=== PATIENT | female | born 1995 | race Two or more races ===

== ENCOUNTER 2020-06-30 19:40 | Emergency (ER) | payer SELFPAY ==
[~2020-06-30] VITALS: Ht 149.9 cm; Wt 78.0 kg
[~2020-06-30 19:40] MED LIST: ACET-704 PO; IBUP-1060 PO; PNV1TABL25 PO
[2020-06-30] MEDS ORDERED: IPRATRPIUM/ALBUTEROL 0.5/2.5MG 3 ML NEBU. NEB ONE (21:30)
[2020-06-30] MEDS ORDERED: predniSONE 20 MG TABLET PO ONE (21:45)
--- NOTE | 2020-06-30 21:58 | RAD ---
EXAM: CHEST 1 VIEW History: Cough, shortness of breath COMPARISON: None available. TECHNIQUE: Single portable radiograph of the chest FINDINGS: The cardiac silhouette is unremarkable. Mild prominent bilateral interstitial lung markings. The costophrenic sulci are clear and well demarcated. IMPRESSION: Mild prominent bilateral interstitial lung markings likely mild congestive changes or interstitial infiltrates. Electronically signed by: Ruben Maddox MD (06/30/2020 9:55 PM) [id number]
[2020-06-30] MEDS ORDERED: PRED20TA PO (22:45)
[2020-06-30] MEDS ORDERED: ALBU2.5V8 INH (22:45)
[2020-06-30] MEDS ORDERED: AZIT250T PO (22:45)
--- NOTE | 2020-06-30 22:45 | PHYS DOC ---
Past Medical History Past Medical History: No Pertinent History Past Surgical History: No Surgical History Smoking Status: Former Smoker Alcohol Use: None General Adult EDM: Chief Complaint: SHORTNESS OF BREATH HPI: HPI: Patient is a 25 year old female who presented to ER for evaluation cough with clear sputum and trouble breathing with nasal congestion for a month. Patient denies any fever, no chest pain, no abdominal pain, no nausea vomiting. Patient denies any sore throat, no headache. Patient is 24 weeks . This is her fourth . Patient denies any pelvic pain, no vaginal bleeding or discharge. Patient denies any concerns with her status. Patient denies being exposed to anybody who tested positive for COVID-19. Patient has been taking the [id number] medication for her cough but did not get any better. Patient denies any recent travel or operation. Patient denies smoking, denies any history of blood clot disorder. Review of Systems: Review of Systems: Constitutional: Denies fever or chills. [] Eyes: Denies change in visual acuity. [] HENT: Positive for nasal congestion, no sore throat. [] Respiratory: Positive for cough and shortness of breath. [] Cardiovascular: Denies chest pain or edema. [] GI: Denies abdominal pain, nausea, vomiting, bloody stools or diarrhea. [] : Denies dysuria. [] Musculoskeletal: Denies back pain or joint pain. [] Integument: Denies rash. [] Neurologic: Denies headache, focal weakness or sensory changes. [] Endocrine: Denies polyuria or polydipsia. [] Lymphatic: Denies swollen glands. [] Psychiatric: Denies depression or anxiety. [] Heart Score: Risk Factors: Risk Factors: DM, Current or recent (<one month) smoker, HTN, HLP, family history of CAD, obesity. Risk Scores: Score 0 - 3: 2.5% MACE over next 6 weeks - Discharge Home Score 4 - 6: 20.3% MACE over next 6 weeks - Admit for Clinical Observation Score 7 - 10: 72.7% MACE over next 6 weeks - Early Invasive Strategies Current Medications: Current Medications Medications (Trade) Dose Ordered Sig/Jessica Start Time Stop Time Status Last Admin Dose Admin Albuterol/ Ipratropium (Duoneb) 3 ml 1X ONCE 06/30/20 21:30 06/30/20 21:31 DC 06/30/20 21:30 3 ML Prednisone (Prednisone) 60 mg 1X ONCE 06/30/20 21:45 06/30/20 21:46 DC 06/30/20 22:15 60 MG Allergies: Allergies: Allergies Coded Allergies Type Severity Reaction Last Updated Verified No Known Drug Allergies 06/11/15 No Physical Exam: PE: Constitutional: Well developed, well nourished, no acute distress, non-toxic appearance. [] HENT: Normocephalic, atraumatic, bilateral external ears normal, oropharynx moist, no oral exudates, nose normal. [] Eyes: PERRLA, EOMI, conjunctiva normal, no discharge. [] Neck: Normal range of motion, no tenderness, supple, no stridor. [] Cardiovascular:Heart rate regular rhythm, no murmur [] Lungs & Thorax: Bilateral breath sounds with expiratory wheezing to auscultation [] Abdomen: Bowel sounds normal, soft, no tenderness, no masses, no pulsatile masses. [] Skin: Warm, dry, no erythema, no rash. [] Back: No tenderness, no CVA tenderness. [] Extremities: No tenderness, no cyanosis, no clubbing, ROM intact, no edema. [] Neurologic: Alert and oriented X 3, normal motor function, normal sensory function, no focal deficits noted. [] Psychologic: Affect normal, judgement normal, mood normal. [] Current Patient Data: Vital Signs: Current Medications Medications (Trade) Dose Ordered Sig/Jessica Route PRN Reason Start Time Stop Time Status Last Admin Dose Admin Albuterol/ Ipratropium (Duoneb) 3 ml 1X ONCE NEB 06/30/20 21:30 06/30/20 21:31 DC 06/30/20 21:30 Prednisone (Prednisone) 60 mg 1X ONCE PO 06/30/20 21:45 06/30/20 21:46 DC 06/30/20 22:15 Vital Signs Date Time Temp Pulse Resp B/P (MAP) Pulse Ox O2 Delivery O2 Flow Rate FiO2 06/30/20 21:33 95 Room Air 06/30/20 20:41 98.4 117 20 90/60 98.4 EKG: EKG: [] Radiology/Procedures: Radiology/Procedures: [][facility] [address] [place] [address] IMAGING REPORT Signed PATIENT: STANFORD ISBELL ACCOUNT: [id number] : 1995 LOCATION: ER AGE: 25 SEX: F EXAM STATUS: REG ER ORD. PHYSICIAN: SANDRA LONGORIA DO REASON: COUGH, SOA PROCEDURE: CHEST AP ONLY EXAM: CHEST 1 VIEW History: Cough, shortness of breath COMPARISON: None available. TECHNIQUE: Single portable radiograph of the chest FINDINGS: The cardiac silhouette is unremarkable. Mild prominent bilateral interstitial lung markings. The costophrenic sulci are clear and well demarcated. IMPRESSION: Mild prominent bilateral interstitial lung markings likely mild congestive changes or interstitial infiltrates. Electronically signed by: Ruben Maddox MD (06/30/2020 9:55 PM) [id number] DICTATED and SIGNED BY: RUBEN MADDOX MD DATE: 06/30/202154 Course & Med Decision Making: Course & Med Decision Making Pertinent Labs and Imaging studies reviewed. (See chart for details) Patient is a 25-year-old female who presented to ER for cough congestion trouble breathing over a month. Patient is 24 weeks . She denies any chest pain. She denies any fever. She had expiratory wheezing on examination. Patient was given breathing treatment and steroids in the ER, she feel much better. Patient will be discharged home, she will need to follow-up with NURSERY TEACHER for reevaluation. Oksana Disclaimer: Oksana Disclaimer: This electronic medical record was generated, in whole or in part, using a voice recognition dictation system. Departure Departure Impression: Primary Impression: Bronchospasm with bronchitis, acute Additional Impression: Person under investigation for COVID-19 Disposition: 01 DC HOME SELF CARE/HOMELESS Condition: IMPROVED Referrals: NO PCP (PCP) PLEASE FOLLOW UP WITH YOUR DOCTOR THIS WEEK Patient Instructions: Acute Bronchitis Additional Instructions: You have been tested for or diagnosed with COVID-19. It is an infection caused by a new type of coronavirus. COVID-19 will cause cold-like or mild flu symptoms in most. It can cause more severe symptoms like problems breathing in some. There is no treatment for COVID-19. The body will clear the infection over time. Self-care will help to ease discomfort. Steps to Take: Self-Care Rest as needed. Healthy habits may help you feel better. Steps include: Choose healthy foods including fruits and vegetables. Drink water throughout the day. Get plenty of sleep each night. If you smoke, try to quit. It may ease breathing. Avoid alcohol. Keep Others Healthy The virus can spread to others. Droplets are released every time you sneeze or cough. The droplets can get into the mouth, nose, or eyes of people near you and lead to infection. To lower the chances of spreading COVID-19 to others: Stay at home until your doctor has said it is safe to leave. If you tested positive this will mean staying isolated until both of the following are true: At least 7 days have passed since the start of illness. You are free of fever for at least 72 hours without the use of medicine. During this time: - Avoid public areas, events, or transportation. Do not return to work or school until your doctor has said it is safe to do so. - Call ahead if you need to go to a medical center. Let them know you may have COVID-19. It will help them guide you where to go. They may also ask you to wear a facemask when you come to the office. - If you call for emergency medical services, let them know you may have COVID- 19. While at home: - Try to avoid close contact with others. Stay about 6 feet away. - If possible, spend most of your time in a separate room from others. - Use a face mask if you will be in close contact with others such as sharing a room or vehicle. - Have someone wipe down common surfaces in the home. Use household consultant education every day on areas like doorknobs, counters, or sinks. - Cough or sneeze into a tissue. Throw the tissue away right after use. If a tissue is not available, cough or sneeze into your elbow. - Wash your hands often. Wash them after sneezing or coughing. Use soap and water and wash for at least 20 seconds. Alcohol based hand apparatus cleaner can be used if soap and water is not available. - Do not prepare food for others. Avoid sharing personal items like forks, spoons, or toothbrushes. - Avoid close contact with pets while you are sick. There is no evidence of the virus passing to pets. This is a safety step until more is known about this virus. Isolation can be frustrating. Social interaction can help. Keep in touch with friends and family through phone and tech options. You can still interact with others in your home, just keep a safe distance of about 6 feet. Follow-up: Your doctors office will check in with you to see if there are any changes in your health. You may be asked to keep track of symptoms to share with them. They will also let you know when you are clear to be in public again. Problems to Look Out For: Contact your doctor if your recovery is not going as you expect. Get emergency care if you have problems such as: - Trouble breathing - Nonstop chest pain or pressure - Changes in awareness, confusion, or problems waking - Lips or face have bluish color - Worsening of symptoms If you think you have an emergency, call for emergency medical services right away. As taken from [facility] Albuterol Sulfate (PROAIR HFA INHALER) 8.5 Gm Hfa.aer.ad 1 PUFF INH PRN Q6HRS PRN for SHORTNESS OF BREATH, #1 INHALER 0 Refills Prov: SANDRA LONGORIA DO 06/30/20 Prednisone (PREDNISONE) 20 Mg Tablet 1 TAB PO DAILY, #7 TAB Prov: SANDRA LONGORIA DO 06/30/20 Azithromycin (ZITHROMAX) 250 Mg Tablet 1 PKG PO UD, #6 TAB Prov: SANDRA LONGORIA DO 06/30/20 SANDRA LONGORIA DO Jun 30, 2020 22:45
[2020-06-30 23:03] VITALS: BP 124/91
--- NOTE | 2020-07-02 16:47 | NUR ---
IP: Informed pt of negative COVID test. Pt verbalized understanding.
== END 2020-06-30 23:04 | disposition home or self-care (01) ==
LOC: ER 19:40
DX: O26.892 Other specified pregnancy related conditions, second trimester (principal); J21.9 Acute bronchiolitis, unspecified; Z20.828 Contact with and (suspected) exposure to other viral communicable diseases; R05 Cough; R09.81 Nasal congestion; Z87.891 Personal history of nicotine dependence; Z3A.24 24 weeks gestation of pregnancy
CPT/HCPCS: 71045; 94640; 99284; J7512; U0003; C9803

== ENCOUNTER 2020-10-12 14:14 | Inpatient (IN) | payer SELFPAY ==
[~2020-10-12] VITALS: Ht 149.9 cm; Wt 80.7 kg
[~2020-10-12 14:14] MED LIST changes: +ALBU2.5V8 INH; +AZIT250T PO; +PRED20TA PO
--- NOTE | 2020-10-12 15:51 | PDOC1 ---
SENIOR RUBY DEVELOPER H&P Date of Admission: Date of Admission: Oct 12, 2020 at 14:14 History of Present Illness: EDC: 10/16/20 LMP: 01/10/20 25y @39.3 by L=23 who was sent from the office for concerns of elevated BP. The pt has had a total of 4 visits. She established care at around 20wks. She did not return until 35.5wks. Her BPs have been elevated when reordered (since 35.5wks). The pt denies MENDES, but states that she has been seeing spots off and on over the last couple of days. PMH: Denies PSH: Denies Meds: PNV All: NKDA OBHx: 3 x TSVD SH: no tob, no EtOH FH: noncontributory Allergies: Coded Allergies: No Known Drug Allergies (Unverified , 06/11/15) Physical Exam: PE: GENERAL: No apparent distress. Alert and oriented. HEENT: Head normocephalic, atraumatic. NECK: Supple LUNGS: Clear to auscultation. HEART: RRR, S1, S2 present, pulses intact ABDOMEN: Soft, positive bowel sounds. EXTREMITIES: No cyanosis or edema. NEUROLOGIC: Normal speech, normal tone PSYCHIATRIC: Normal affect, normal mood. SKIN: No ulceration. FHT: 150's +acels/no decels/mLTV [place]: irritability SVE: Assessment & Plan: A/P 25y @36.6 by L=23 1.) Indxn - will start Pit at midnight 2.) GHTN vs preeclampsia - BPs nml to mild to severe, PIH labs ordered, will start indxn at midnight, may start Mag if labs abnml or persistent severe range BP's 3.) Scant care - total of 4 visits 4.) Noncompliance - Gap in care 20-35 wks, and a month since last visit 5.) kidney cyst - 0.5 cm 6.) Flu given 06/01/20 7.) TDAP given 09/16/20 8.) Fetus cat I FHT, vtx by BSUS 9.) GBS neg 10.) DPS - consent signed 09/16/20 (26 days) DANIEL GOMES MD Oct 12, 2020 15:50
[2020-10-12 15:57] LABS: BASO % 0 % (0-3); EOS # 0.1 x10^3/uL (0.0-0.7); EOS % 1 % (0-3); HEMATOCRIT 33.8 % (36.0-47.0); HEMOGLOBIN 11.8 g/dL (12.0-15.5); LYMPH # 2.2 x10^3/uL (1.0-4.8); LYMPH % 24 % (24-48); MEAN CORPUSCULAR HEMOGLOBIN 32 pg (25-35); MEAN CORPUSCULAR HGB CONC 35 g/dL (31-37); MEAN CORPUSCULAR VOLUME 92 fL (79-100); MONO # 0.5 x10^3/uL (0.0-1.1); MONO % 6 % (0-9); NEUT # 6.4 x10^3/uL (1.8-7.7); NEUT % 69 % (31-73); PLATELET COUNT 177 x10^3/uL (140-400); RED BLOOD COUNT 3.66 x10^6/uL (3.50-5.40); RED CELL DISTRIBUTION WIDTH 14.5 % (11.5-14.5); WHITE BLOOD COUNT 9.2 x10^3/uL (4.0-11.0)
[2020-10-12 15:58] LABS: BILIRUBIN,URINE NEGATIVE (NEG); CLARITY,URINE CLEAR; COLOR,URINE YELLOW; NITRITE,URINE NEGATIVE (NEG); PH,URINE 7.5 (<5.0-8.0); PROTEIN,URINE NEGATIVE (NEG-TRACE)
[2020-10-12 16:13] LABS: CALCIUM 8.5 mg/dL (8.5-10.1); CREATININE 0.5 mg/dL (0.6-1.0); GFR 152.9; POTASSIUM 3.9 mmol/L (3.5-5.1)
[2020-10-12 16:15] LABS: CREATININE,RANDOM URINE 73.3 mg/dL (Not Establ.)
[2020-10-12] MEDS ORDERED: ACETAMINOPHEN 325 MG TABLET. PO PRN (16:15)
[2020-10-12] MEDS ORDERED: BUTORPHANOL 2 MG/ML VIAL. IVP PRN ×2 (16:15)
[2020-10-12] MEDS ORDERED: IV RINGERS,LACTATED 1000ML 1,000 ML IV SCH (16:15)
[2020-10-12] MEDS ORDERED: OXYTOCIN 30 UNIT/500 ML PREMIX 500 ML IV PRN ×2 (16:15)
[2020-10-12] MEDS ORDERED: LIDOCAINE 1% PF 30 ML VIAL. INJ PRN (16:15)
[2020-10-12] MEDS ORDERED: TERBUTALINE 1 MG/ML VIAL. SQ PRN (16:15)
[2020-10-12] MEDS ORDERED: 0.9 % SODIUM CHLORIDE 10 ML DISP.SYRIN. IV PRN (16:15)
[2020-10-12 16:18] LABS: ALBUMIN 2.6 g/dL (3.4-5.0); ALBUMIN/GLOBULIN RATIO 0.6 (1.0-1.7); TOTAL BILIRUBIN 0.5 mg/dL (0.2-1.0); TOTAL PROTEIN 6.9 g/dL (6.4-8.2); URIC ACID 2.7 mg/dL (2.6-6.0)
[2020-10-12 16:21] LABS: BACTERIA,URINE 0 /HPF (0-FEW); RBC,URINE 0 /HPF (0-2)
[2020-10-12 17:11] VITALS: BP 155/78
[2020-10-12] MEDS ORDERED: IV NORMAL SALINE 1000ML BAG 1,000 ML IV SCH (19:30)
[2020-10-13] MEDS ORDERED: L&D EPIDURAL SYRINGE 50 ML ONE (09:47)
[2020-10-13] MEDS ORDERED: ROPIVacaine 0.2% PF 10 ML VIAL. ONE ×2 (09:47→10:00)
[2020-10-13] MEDS ORDERED: L&D EPIDURAL 50 ML SYRINGE. ONE (10:00)
--- NOTE | 2020-10-13 10:54 | PDOC ---
HAT SIZER PROGRESS NOTE Date of Service: DATE: 10/13/20 TIME: 10:53 Subjective: Pt feeling ctxs. Denies MENDES, changes in vision, or abd pain Objective: Vital Signs: Vital Signs Date Time Temp Pulse Resp B/P (MAP) Pulse Ox O2 Delivery O2 Flow Rate FiO2 10/12/20 17:11 98.6 92 20 155/78 (103) 98.6 Vital Signs Date Time Temp Pulse Resp B/P (MAP) Pulse Ox O2 Delivery O2 Flow Rate FiO2 10/12/20 17:11 98.6 92 20 155/78 (103) 98.6 Labs: Laboratory Tests Test 10/12/20 14:55 10/12/20 15:40 10/12/20 15:47 Urine Collection Type Unknown Urine Color Yellow Urine Clarity Clear Urine pH 7.5 (<5.0-8.0) Urine Specific [place] 1.010 (1.000-1.030) Urine Protein Negative mg/dL (NEG-TRACE) Urine Glucose (UA) Negative mg/dL (NEG) Urine Ketones (Stick) Negative mg/dL (NEG) Urine Blood Negative (NEG) Urine Nitrite Negative (NEG) Urine Bilirubin Negative (NEG) Urine Urobilinogen Dipstick 1.0 mg/dL (0.2 mg/dL) Urine Leukocyte Esterase Negative (NEG) Urine RBC 0 /HPF (0-2) Urine WBC 1-4 /HPF (0-4) Urine Squamous Epithelial Cells Mod /LPF Urine Bacteria 0 /HPF (0-FEW) Urine Mucus Slight /LPF Urine Random Creatinine 73.3 mg/dL (Not Establ.) Urine Random Total Protein 12.5 mg/dL (Not Establ.) Urine Protein/Creatinine Ratio 171 mg/g (0-200) SARS-CoV-2 Antigen (Rapid) Negative (NEGATIVE) White Blood Count 9.2 x10^3/uL (4.0-11.0) Red Blood Count 3.66 x10^6/uL (3.50-5.40) Hemoglobin 11.8 g/dL (12.0-15.5) L Hematocrit 33.8 % (36.0-47.0) L Mean Corpuscular Volume 92 fL (79-100) Mean Corpuscular Hemoglobin 32 pg (25-35) Mean Corpuscular Hemoglobin Concent 35 g/dL (31-37) Red Cell Distribution Width 14.5 % (11.5-14.5) Platelet Count 177 x10^3/uL (140-400) Neutrophils (%) (Auto) 69 % (31-73) Lymphocytes (%) (Auto) 24 % (24-48) Monocytes (%) (Auto) 6 % (0-9) Eosinophils (%) (Auto) 1 % (0-3) Basophils (%) (Auto) 0 % (0-3) Neutrophils # (Auto) 6.4 x10^3/uL (1.8-7.7) Lymphocytes # (Auto) 2.2 x10^3/uL (1.0-4.8) Monocytes # (Auto) 0.5 x10^3/uL (0.0-1.1) Eosinophils # (Auto) 0.1 x10^3/uL (0.0-0.7) Basophils # (Auto) 0.0 x10^3/uL (0.0-0.2) Sodium Level 138 mmol/L (136-145) Potassium Level 3.9 mmol/L (3.5-5.1) Chloride Level 103 mmol/L (98-107) Carbon Dioxide Level 22 mmol/L (21-32) Anion Gap 13 (6-14) Blood Urea Nitrogen 4 mg/dL (7-20) L Creatinine 0.5 mg/dL (0.6-1.0) L Estimated GFR (Cockcroft-Gault) 152.9 BUN/Creatinine Ratio 8 (6-20) Glucose Level 94 mg/dL (70-99) Uric Acid 2.7 mg/dL (2.6-6.0) Calcium Level 8.5 mg/dL (8.5-10.1) Total Bilirubin 0.5 mg/dL (0.2-1.0) Aspartate Amino Transferase (AST) 11 U/L (15-37) L Alanine Aminotransferase (ALT) 12 U/L (14-59) L Alkaline Phosphatase 231 U/L (46-116) H Lactate Dehydrogenase 158 U/L (81-234) Total Protein 6.9 g/dL (6.4-8.2) Albumin 2.6 g/dL (3.4-5.0) L Albumin/Globulin Ratio 0.6 (1.0-1.7) L Treponema pallidum Antibody Nonreactive (Nonreactive) Laboratory Tests 10/12/20 15:47 Laboratory Tests 10/12/20 15:47 Laboratory Tests 10/12/20 15:47 Physical Exam: GENERAL: No apparent distress. Alert and oriented. HEENT: Head normocephalic, atraumatic. NECK: Supple LUNGS: Clear to auscultation. HEART: RRR, S1, S2 present, pulses intact ABDOMEN: Soft, positive bowel sounds. EXTREMITIES: No cyanosis or edema. NEUROLOGIC: Normal speech, normal tone PSYCHIATRIC: Normal affect, normal mood. SKIN: No ulceration. FHT: 150s +acels/no decels/mLTV [place]: 1-2 min SVE: 3/50/-2 Assessment & Plan: A/P 25y @39.4 by L=23 1.) Indxn for GHTN, on 14U of Pit, AROM/cl 2.) GHTN vs preeclampsia BPs nml to mild, a few severes noted when she first arrived and one around midnight, both occ not requiring meds, currently no s/s of preeclampsia, PIH labs wnl 3.) Scant care 4.) Noncompliance - Gap in care 20-35 wks, and a month since last visit 5.) kidney cyst - 0.5 cm 6.) Flu given 06/01/20 7.) TDAP given 09/16/20 8.) Fetus cat I FHT 9.) GBS neg 10.) DPS - consent signed 09/16/20, thinking about alternative DANIEL GOMES MD Oct 13, 2020 10:54
--- NOTE | 2020-10-13 13:56 | PDOC ---
VAGINAL DELIVERY DATE DATE: 10/13/20 TIME: 13:56 TIME Patient delivered a viable male infant over intact perineum at 1237. Wt 7 lb 1.9 oz. Apgars 9/9. Placenta delivered spontaneously, intact with 3VC. No lacerations noted. Good hemostasis noted. 20 U of Pit given with IVF. EBL 300cc. WEIGHT Weight [ ] DANIEL GMOES MD Oct 13, 2020 13:56
[2020-10-13] MEDS ORDERED: MAG HYDROX/ALUMINUM HYD/SIMETH 30 ML ORAL.SUSP PO PRN (14:00)
[2020-10-13] MEDS ORDERED: OXYTOCIN 30 UNIT/500 ML PREMIX 500 ML IV PRN (14:00)
[2020-10-13] MEDS ORDERED: DOCUSATE SODIUM 100 MG CAPSULE. PO PRN (14:00)
[2020-10-13] MEDS ORDERED: ACETAMINOPHEN 325 MG TABLET. PO PRN (14:00)
[2020-10-13] MEDS ORDERED: TDaP (Adacel) per PROTOCOL. MC PRN (14:00)
[2020-10-13] MEDS ORDERED: MAGNESIUM HYDROXIDE 2,400 MG/30 ML ORAL.SUSP. PO PRN (14:00)
[2020-10-13] MEDS ORDERED: MMR per PROTOCOL. MC PRN (14:00)
[2020-10-13] MEDS ORDERED: 0.9 % SODIUM CHLORIDE 10 ML DISP.SYRIN. IV PRN (14:00)
[2020-10-13] MEDS ORDERED: diphenhydrAMINE HCL 25 MG CAPSULE PO PRN (14:00)
[2020-10-13] MEDS ORDERED: HYDROCORTISONE 1% TOPICAL OINTMENT 30GM TUBE. TP PRN (14:00)
[2020-10-13] MEDS ORDERED: PHENYLEPH/MINERAL OIL/PETROLAT RECTAL OINTMENT TUBE. RC PRN (14:00)
[2020-10-13] MEDS ORDERED: ZOLPIDEM 5 MG TABLET. PO PRN (14:00)
[2020-10-13] MEDS ORDERED: SIMETHICONE 80 MG TAB.CHEW PO PRN (14:00)
[2020-10-13] MEDS ORDERED: oxyCODONE/APAP 5/325 1 TAB TABLET PO PRN (14:00)
[2020-10-13] MEDS ORDERED: BENZOCAINE 20% TOPICAL AEROSOL SPRAY 57GM CAN. TP PRN (14:00)
[2020-10-13 14:41] VITALS: BP 143/65
[2020-10-13] MEDS: IBUPROFEN 400 MG TABLET. PO PRN (15:06)
[2020-10-13 16:25] VITALS: BP 133/71
[2020-10-13 18:17] VITALS: BP 151/92
[2020-10-13 20:00] VITALS: BP 127/77
[2020-10-14 04:21] VITALS: BP 145/91
[2020-10-14 06:58] LABS: HEMATOCRIT 27.9 % (36.0-47.0); HEMOGLOBIN 9.7 g/dL (12.0-15.5); RED BLOOD COUNT 2.98 x10^6/uL (3.50-5.40); RED CELL DISTRIBUTION WIDTH 14.1 % (11.5-14.5); WHITE BLOOD COUNT 10.7 x10^3/uL (4.0-11.0)
[2020-10-14 07:51] VITALS: BP 121/75
[2020-10-14] MEDS: IBUPROFEN 400 MG TABLET. PO PRN (08:07)
[2020-10-14] MEDS: PRENATAL MULTIVITAMIN TABLET. PO SCH (08:07)
[2020-10-14] MEDS: FERROUS SULFATE 325 MG TABLET. PO SCH (08:07)
--- NOTE | 2020-10-14 08:46 | PDOC ---
SPINNER HYDRAULIC PROGRESS NOTE Date of Service: DATE: 10/14/20 TIME: 08:45 Subjective: Pt with good pain control. Pratibha PO. Voiding. Minimal lochia. Denies MENDES, changes in vision, or abd pain Objective: Vital Signs: Vital Signs Date Time Temp Pulse Resp B/P (MAP) Pulse Ox O2 Delivery O2 Flow Rate FiO2 10/13/20 14:41 95 20 143/65 (91) 10/13/20 18:17 98.2 98.2 10/13/20 20:00 Room Air 10/14/20 04:21 99 Vital Signs Date Time Temp Pulse Resp B/P (MAP) Pulse Ox O2 Delivery O2 Flow Rate FiO2 10/14/20 07:51 98.2 86 14 121/75 (90) 98 Room Air 98.2 Labs: Laboratory Tests Test 10/14/20 05:09 White Blood Count 10.7 x10^3/uL (4.0-11.0) Red Blood Count 2.98 x10^6/uL (3.50-5.40) L Hemoglobin 9.7 g/dL (12.0-15.5) L Hematocrit 27.9 % (36.0-47.0) L Mean Corpuscular Volume 94 fL (79-100) Mean Corpuscular Hemoglobin 32 pg (25-35) Mean Corpuscular Hemoglobin Concent 35 g/dL (31-37) Red Cell Distribution Width 14.1 % (11.5-14.5) Platelet Count 161 x10^3/uL (140-400) Laboratory Tests 10/14/20 05:09 Laboratory Tests 10/14/20 05:09 Physical Exam: GENERAL: No apparent distress. Alert and oriented. HEENT: Head normocephalic, atraumatic. NECK: Supple LUNGS: Clear to auscultation. HEART: RRR, S1, S2 present, pulses intact ABDOMEN: Soft, positive bowel sounds. EXTREMITIES: No cyanosis or edema. NEUROLOGIC: Normal speech, normal tone PSYCHIATRIC: Normal affect, normal mood. SKIN: No ulceration. FFNT below umb No C/C/E Assessment & Plan: A/P 25y PPD #1 s/p 1.) PP doing well 2.) GHTN BPs nml to mild since delivery, no s/s of preeclampsia, PIH labs wnl 3.) Anemia Hgb 11.8 -> 9.7, on Fe 4.) kidney cyst - 0.5 cm, peds aware 6.) Flu given 06/01/20 7.) TDAP given 09/16/20 8.) DPS - thinking about IUD as alternative 9.) Cont PP care DANIEL GOMES MD Oct 14, 2020 08:46
[2020-10-14 21:00] VITALS: BP 130/80
[2020-10-15 05:00] VITALS: BP 132/80
[2020-10-15] MEDS: FERROUS SULFATE 325 MG TABLET. PO SCH (08:43)
[2020-10-15] MEDS: IBUPROFEN 400 MG TABLET. PO PRN (08:44)
[2020-10-15] MEDS: PRENATAL MULTIVITAMIN TABLET. PO SCH (08:44)
[2020-10-15] MEDS ORDERED: FERR325T14 PO (08:54)
[2020-10-15] MEDS ORDERED: IBUP-1060 PO (08:54)
[2020-10-15] MEDS ORDERED: DOCU-109 PO (08:54)
--- NOTE | 2020-10-15 09:13 | PDOC ---
PUBLIC WORKS DIRECTOR PROGRESS NOTE Date of Service: DATE: 10/15/20 TIME: 09:12 Subjective: Pt with good pain control. Pratibha PO. Voiding. Minimal lochia. Denies MENDES, changes in vision, or abd pain Objective: Vital Signs: Vital Signs Date Time Temp Pulse Resp B/P (MAP) Pulse Ox O2 Delivery O2 Flow Rate FiO2 10/14/20 07:51 98.2 86 14 121/75 (90) 98 Room Air 98.2 Vital Signs Date Time Temp Pulse Resp B/P (MAP) Pulse Ox O2 Delivery O2 Flow Rate FiO2 10/15/20 05:00 97.8 78 18 132/80 (97) Room Air 97.8 10/14/20 07:51 98 Physical Exam: GENERAL: No apparent distress. Alert and oriented. HEENT: Head normocephalic, atraumatic. NECK: Supple LUNGS: Clear to auscultation. HEART: RRR, S1, S2 present, pulses intact ABDOMEN: Soft, positive bowel sounds. EXTREMITIES: No cyanosis or edema. NEUROLOGIC: Normal speech, normal tone PSYCHIATRIC: Normal affect, normal mood. SKIN: No ulceration. FFNT below umb No C/C/E Assessment & Plan: A/P 25y PPD #2 s/p 1.) PP doing well 2.) GHTN BPs nml to mild since delivery, no s/s of preeclampsia, PIH labs wnl 3.) Anemia Hgb 11.8 -> 9.7, on Fe 4.) kidney cyst - 0.5 cm, peds aware 6.) Flu given 06/01/20 7.) TDAP given 09/16/20 8.) DPS - thinking about IUD as alternative 9.) D/c home DANIEL GOMES MD Oct 15, 2020 09:13
--- NOTE | 2020-10-15 09:44 | DS ---
DATE OF DISCHARGE: 10/15/2020 ADMISSION DIAGNOSES: 1. Intrauterine at 39 weeks and 3 days by last menstrual period equal to a 23-week ultrasound. 2. Induction of labor. 3. Gestational hypertension versus preeclampsia. 4. Scant care with a total of 4 visits. 5. Noncompliance, gap in her care between 20 and 35 weeks. 6. kidney cyst. 7. GBS negative. 8. Desires permanent sterilization, but consents have not matured. DISCHARGE DIAGNOSES: 1. Intrauterine at 39 weeks and 3 days by last menstrual period equal to a 23-week ultrasound. 2. Induction of labor. 3. Gestational hypertension versus preeclampsia. 4. Scant care with a total of 4 visits. 5. Noncompliance, gap in her care between 20 and 35 weeks. 6. kidney cyst. 7. GBS negative. 8. Desires permanent sterilization, but consents have not matured. PROCEDURE: Spontaneous vaginal delivery. BRIEF HOSPITAL COURSE: The patient is a 25-year-old 4, para 3-0-0-3, who presented to Labor and Delivery at 39 weeks and 3 days by LMP equal to a 23-week ultrasound after she was sent from the office for elevated blood pressures. The patient had established care around 20 weeks and had a total of 4 visits. The patient did not return until 35 weeks and 5 days or GBS was performed. At that visit, the patient also had elevated blood pressure. The patient was ultimately sent to Labor and Delivery for evaluation. The patient's blood pressures were normal to mild, but did have a few severe based on her gestational age and a few of the severe range blood pressures, decision was made to admit and begin an induction of labor. [facility] labs were sent and returned normal. Due to the inclement weather, the patient's induction was not started to midnight where she was started on Pitocin. The patient progressed and by noon the next day, the patient delivered by vaginal delivery, see delivery note for full detail. During her course of labor, the patient had a few severe range blood pressures, not of them required treatment with blood pressure medications. After the delivery of the baby, the patient's blood pressures were mostly normal to mild. Of note, the patient's hemoglobin on admission was found to be 11.8 and after delivery was found to be 9.7. By day #2, the patient was meeting all discharge criteria, had no signs or symptoms of preeclampsia, so was subsequently discharged home. On admission discussion was held with the patient regarding sterilization. She had decided that she was more interested in an alternative to a tubal. She was now interested in an IUD. DISCHARGE INSTRUCTIONS: The patient was told not to lift anything greater than 20 pounds, have pelvic rest for 6 weeks. CALL IF: The patient was to call if she had fevers, chills, nausea, vomiting, abdominal pain, headache, changes in vision or any additional questions or concerns. FOLLOWUP APPOINTMENT: The patient is to follow up on 10/22 at 1:20 for blood pressure check. DISCHARGE MEDICATIONS: The patient was given a prescription for Motrin 800 mg, 30 pills; Colace 100 mg, 30 pills and ferrous sulfate 325 mg, 30 pills. DANIEL GOMES MD DR: ARELY/nts JOB#: [id number] / [id number] MEGHANA
[2020-10-15 13:40] VITALS: BP 144/84
--- NOTE | 2020-10-15 14:30 | NUR ---
Discharge and follow up instructions reviewed and given to pt along with Rx x3. Pt verbalized understanding and denied any questions at this time. Pt ambulated out of the hospital with this nurse and her by her side.
== END 2020-10-15 14:30 | disposition home or self-care (01) | DRG 807 ==
LOC: OBSVTOIN 14:14 → 3 SO LND 14:14 → 3 NORTH 10-14 04:23
PROVIDERS: ADMIT Obstetrics & Gynecology; ATTEND Obstetrics & Gynecology
PROC: 10E0XZZ Delivery of Products of Conception, External Approach (ICD-10-PCS; principal; 2020-10-13)
PROC: 4A1HXCZ Monitoring of Products of Conception, Cardiac Rate, External Approach (ICD-10-PCS; 2020-10-13)
PROC: 10907ZC Drainage of Amniotic Fluid, Therapeutic from Products of Conception, Via Natural or Artificial Opening (ICD-10-PCS; 2020-10-13)
DX: O13.4 Gestational [pregnancy-induced] hypertension without significant proteinuria, complicating childbirth (principal); Z37.0 Single live birth; O35.8XX0 Maternal care for other (suspected) fetal abnormality and damage, not applicable or unspecified; O90.81 Anemia of the puerperium; D64.9 Anemia, unspecified; Z20.822 Contact with and (suspected) exposure to COVID-19; Z91.19 Patient's noncompliance with other medical treatment and regimen; Z3A.39 39 weeks gestation of pregnancy
CPT/HCPCS: 36415; 80053; 81001; 82570; 83615; 84156; 84550; 85025; 85027; 86592; 86850; 86900; 86901; 87426; G0378; J2590; J2795; J3010; J7120; U0003